=== PATIENT | male | born 1965 | race Caucasian/White ===

== ENCOUNTER 2018-08-21 16:24 | Inpatient (IN) | payer OTHER ==
[~2018-08-21] VITALS: Ht 172.7 cm; Wt 73.0 kg
[~2018-08-21 16:24] MED LIST: AMOX-580 PO; HYDR-4383 PO
[2018-08-21] MEDS ORDERED: acetaminophen 325mg tablet PO ONE (16:50)
[2018-08-21] MEDS ORDERED: normal saline 1000ML IV soln IV ONE (16:50)
[2018-08-21 16:58] LABS: CLARITY,URINE CLEAR (Clear); COLOR,URINE YELLOW (Yellow); GLUCOSE, URINE NEGATIVE (Neg); KETONES,URINE NEGATIVE (Neg); LEUKOCYTE ESTERASE ,URINE NEGATIVE (Neg); NITRITES, URINE NEGATIVE (Neg); OCCULT BLOOD,URINE NEGATIVE (Neg); PROTEIN,URINE NEGATIVE (Neg); UA COLLECTION TYPE VOIDED; UROBILINOGEN,URINE 0.2 E.U/dL (0.2-1.0)
[2018-08-21 17:23] LABS: BASOPHILS % (AUTO) 0.2 % (0-1); EOSINOPHILS % (AUTO) 0 % (0-6); HEMATOCRIT 39.6 % (42.0-52.0); HEMOGLOBIN 13.4 g/dl (14.0-17.9); LYMPHOCYTES # (AUTO) 0.9 X10'3 (1.1-4.8); LYMPHOCYTES % (AUTO) 3.1 % (21-51); MEAN CORPUSCULAR HEMOGLOBIN 28.4 PG (27.0-31.0); MEAN CORPUSCULAR HGB CONC 33.7 % (33.0-36.5); MEAN PLATELET VOLUME 7.1 FL (7.4-10.4); MONOCYTES # (AUTO) 0.4 X10'3 (0-0.9); MONOCYTES % (AUTO) 1.4 % (2-12); NEUTROPHILS # (AUTO) 27.5 X10'3 (1.8-7.7); NEUTROPHILS % (AUTO) 95.3 % (42-75); PLATELET COUNT 540 X10'3 (140-440); RED BLOOD COUNT 4.71 X10'6 (4.70-6.10)
[2018-08-21 17:29] LABS: WHITE BLOOD COUNT 28.8 X10'3 (4.5-11.0)
[2018-08-21] MEDS ORDERED: morphine 4 MG/ML inj SYRINge IV ONE (17:35)
[2018-08-21] MEDS ORDERED: ondansetron/PF 4mg/2ml inj IV ONE (17:35)
[2018-08-21 17:36] LABS: ALANINE AMINOTRANSFERASE 52 U/L (12-78); ALBUMIN 3.1 G/DL (3.4-5.0); ALBUMIN/GLOBULIN RATIO 0.7 (1.1-1.5); ALKALINE PHOSPHATASE 157 IU/L (46-116); ANION GAP 13 (8-16); ASPARTATE AMINO TRANSFERASE 25 U/L (10-37); BLOOD UREA NITROGEN 15 MG/DL (7-18); BUN/CREATININE RATIO 12.8 (5.4-32.0); CALCIUM 8.6 MG/DL (8.5-10.1); CHLORIDE 96 MMOL/L (99-107); CREATININE 1.17 MG/DL (0.60-1.10); GLUCOSE 133 MG/DL (70-104); SODIUM 134 MMOL/L (135-145); TOTAL CARBON DIOXIDE 25.5 MMOL/L (24-32); TOTAL PROTEIN 7.6 G/DL (6.4-8.2); eGFR 66 ML/MIN
[2018-08-21 17:40] LABS: PLATELET ESTIMATE INCREASED; TOTAL CELLS COUNTED 100
[2018-08-21] MEDS ORDERED: piperacillin/tazo 3.375gm/50ml 50 ML IV ONE (17:40)
[2018-08-21] MEDS ORDERED: vancomycin/NS 1 GM ADD-VANTAGE 250 ML IV ONE (17:40)
[2018-08-21] MEDS ORDERED: iohexol 350MG/ML 100ml bottle IV ONE (17:41)
[2018-08-21 17:43] LABS: PARTIAL THROMBOPLASTIN TIME 28 SECONDS (22-32); PROTHROMBIN TIME 10.3 SECONDS (9.0-12.0)
[2018-08-21] MEDS: HYDROmorphone 1 mg/ml syringe IV PRN ×2 (18:09→20:50)
[2018-08-21] MEDS ORDERED: NO HOME MEDS (19:49)
[2018-08-21] MEDS ORDERED: heparin 10,000 units/1 ML INJ IV ONE (20:05)
[2018-08-21] MEDS: heparin 25,000 UNIT/250ml bag 250 ML IV SCH (20:36)
[2018-08-21] MEDS ORDERED: acetaminophen 325mg tablet PO PRN (21:00)
[2018-08-21] MEDS ORDERED: mag hydrox/Alum hydrox/simeth 30ml oral suspension PO PRN (21:00)
[2018-08-21] MEDS ORDERED: morphine 2 MG/ML inj. syringe IV PRN ×2 (21:00)
[2018-08-21] MEDS ORDERED: ondansetron/PF 4mg/2ml inj IV PRN (21:00)
[2018-08-21] MEDS ORDERED: magnesium hydroxide 30ml (MOM) UD suspension PO PRN (21:00)
[2018-08-21] MEDS: normal saline 1000ml 1,000 ML IV SCH (21:18)
[2018-08-21 22:35] VITALS: BP 141/81
[2018-08-21] MEDS ORDERED: naloxone 0.4 mg/ml inj IV PRN (23:45)
[2018-08-21] MEDS ORDERED: CADD PCA waste documentation MC SCH (23:45)
[2018-08-22] MEDS: HYDROmorphone/NS 1 mg/ml CADD 50 ML IV SCH ×13 (00:17→23:00)
[2018-08-22] MEDS: piperacillin/tazo 3.375gm/50ml 50 ML IV SCH ×4 (02:49→20:11)
[2018-08-22] MEDS ORDERED: ketorolac trometh. 30mg/ml inj. IV ONE (03:20)
[2018-08-22 03:22] LABS: BASOPHILS # (AUTO) 0.1 X10'3 (0-0.2); BASOPHILS % (AUTO) 0.6 % (0-1); EOSINOPHILS % (AUTO) 0.1 % (0-6); HEMATOCRIT 34.3 % (42.0-52.0); HEMOGLOBIN 11.4 g/dl (14.0-17.9); LYMPHOCYTES # (AUTO) 1.7 X10'3 (1.1-4.8); LYMPHOCYTES % (AUTO) 7.5 % (21-51); MEAN CORPUSCULAR HEMOGLOBIN 28.1 PG (27.0-31.0); MEAN CORPUSCULAR HGB CONC 33.4 % (33.0-36.5); MEAN CORPUSCULAR VOLUME 84.1 FL (78-98); MEAN PLATELET VOLUME 7.1 FL (7.4-10.4); MONOCYTES # (AUTO) 0.8 X10'3 (0-0.9); MONOCYTES % (AUTO) 3.5 % (2-12); NEUTROPHILS # (AUTO) 20.3 X10'3 (1.8-7.7); NEUTROPHILS % (AUTO) 88.3 % (42-75); PLATELET COUNT 445 X10'3 (140-440); RED BLOOD COUNT 4.08 X10'6 (4.70-6.10)
[2018-08-22 03:43] LABS: ALANINE AMINOTRANSFERASE 38 U/L (12-78); ALBUMIN 2.3 G/DL (3.4-5.0); ALBUMIN/GLOBULIN RATIO 0.6 (1.1-1.5); ALKALINE PHOSPHATASE 120 IU/L (46-116); ANION GAP 9 (8-16); ASPARTATE AMINO TRANSFERASE 12 U/L (10-37); BILIRUBIN,TOTAL 0.8 MG/DL (0.1-1.0); BLOOD UREA NITROGEN 11 MG/DL (7-18); BUN/CREATININE RATIO 10.6 (5.4-32.0); CHLORIDE 102 MMOL/L (99-107); CREATININE 1.04 MG/DL (0.60-1.10); GLUCOSE 116 MG/DL (70-104); POTASSIUM 4.2 MMOL/L (3.5-5.1); SODIUM 137 MMOL/L (135-145); TOTAL CARBON DIOXIDE 26.4 MMOL/L (24-32); TOTAL PROTEIN 6.1 G/DL (6.4-8.2); eGFR 75 ML/MIN
[2018-08-22] MEDS: normal saline 1000ml 1,000 ML IV SCH ×3 (03:49→23:02)
[2018-08-22 07:00] VITALS: BP 109/69
[2018-08-22] MEDS ORDERED: potassium Cl 20 mEq SR tablet PO PRN ×2 (09:50)
[2018-08-22] MEDS ORDERED: magnesium Cl slow-release 64mg tablet PO PRN (09:50)
[2018-08-22] MEDS ORDERED: potassium Cl 40MEQ/NS 500ml 500 ML IV PRN ×2 (09:50)
[2018-08-22] MEDS ORDERED: magnesium 4gm in 100ml NS 100 ML IV PRN (09:50)
[2018-08-22 13:27] VITALS: BP 117/60
[2018-08-22] MEDS: heparin 25,000 UNIT/250ml bag 250 ML IV SCH (13:56)
[2018-08-22] MEDS ORDERED: pantoprazole 40 MG vial IV ONE (16:10)
[2018-08-22 16:55] LABS: PARTIAL THROMBOPLASTIN TIME 46 SECONDS (22-32)
[2018-08-22 18:00] VITALS: BP 139/85
[2018-08-22] MEDS: lactobacillus rhamnosus 10,000 MMU CELLS/CAPSULE PO SCH (20:08)
[2018-08-22] MEDS: ketorolac trometh. 30mg/ml inj. IV PRN (20:10)
[2018-08-22] MEDS: heparin 10,000 units/1 ML INJ IV PRN (22:52)
[2018-08-23] VITALS: BP 111/66
[2018-08-23] MEDS: HYDROmorphone/NS 1 mg/ml CADD 50 ML IV SCH ×12 (01:00→23:00)
[2018-08-23] MEDS: piperacillin/tazo 3.375gm/50ml 50 ML IV SCH ×4 (01:41→19:55)
[2018-08-23 05:12] LABS: BASOPHILS % (AUTO) 0.2 % (0-1); EOSINOPHILS # (AUTO) 0.1 X10'3 (0-0.9); EOSINOPHILS % (AUTO) 0.9 % (0-6); HEMATOCRIT 30.3 % (42.0-52.0); HEMOGLOBIN 10.1 g/dl (14.0-17.9); LYMPHOCYTES # (AUTO) 1.4 X10'3 (1.1-4.8); LYMPHOCYTES % (AUTO) 10.5 % (21-51); MEAN CORPUSCULAR HGB CONC 33.5 % (33.0-36.5); MEAN CORPUSCULAR VOLUME 83.8 FL (78-98); MEAN PLATELET VOLUME 8.1 FL (7.4-10.4); MONOCYTES # (AUTO) 0.8 X10'3 (0-0.9); MONOCYTES % (AUTO) 5.8 % (2-12); NEUTROPHILS # (AUTO) 11.1 X10'3 (1.8-7.7); NEUTROPHILS % (AUTO) 82.6 % (42-75); PLATELET COUNT 371 X10'3 (140-440); RED BLOOD COUNT 3.62 X10'6 (4.70-6.10); RED CELL DISTRIBUTION WIDTH 13.8 % (11.5-14.5); WHITE BLOOD COUNT 13.4 X10'3 (4.5-11.0)
[2018-08-23 05:13] LABS: ALANINE AMINOTRANSFERASE 26 U/L (12-78); ALBUMIN/GLOBULIN RATIO 0.5 (1.1-1.5); ALKALINE PHOSPHATASE 98 IU/L (46-116); ANION GAP 8 (8-16); ASPARTATE AMINO TRANSFERASE 11 U/L (10-37); BILIRUBIN,TOTAL 0.4 MG/DL (0.1-1.0); BLOOD UREA NITROGEN 11 MG/DL (7-18); BUN/CREATININE RATIO 9.4 (5.4-32.0); CALCIUM 7.8 MG/DL (8.5-10.1); CHLORIDE 106 MMOL/L (99-107); CREATININE 1.17 MG/DL (0.60-1.10); GLUCOSE 105 MG/DL (70-104); MAGNESIUM 1.9 MG/DL (1.5-2.4); PHOSPHORUS 2.6 MG/DL (2.3-4.5); POTASSIUM 3.7 MMOL/L (3.5-5.1); SODIUM 141 MMOL/L (135-145); TOTAL CARBON DIOXIDE 26.8 MMOL/L (24-32); TOTAL PROTEIN 5.8 G/DL (6.4-8.2); eGFR 66 ML/MIN
[2018-08-23 07:00] VITALS: BP 112/70
[2018-08-23] MEDS: pantoprazole 40 MG vial IV SCH (08:05)
[2018-08-23] MEDS: ketorolac trometh. 30mg/ml inj. IV PRN ×2 (08:11→19:56)
[2018-08-23] MEDS: lactobacillus rhamnosus 10,000 MMU CELLS/CAPSULE PO SCH ×2 (08:12→19:55)
[2018-08-23] MEDS: heparin 25,000 UNIT/250ml bag 250 ML IV SCH ×2 (09:54→17:29)
[2018-08-23] MEDS: normal saline 1000ml 1,000 ML IV SCH ×2 (09:55→20:28)
[2018-08-23 11:00] VITALS: BP 111/71
[2018-08-23] MEDS: heparin 10,000 units/1 ML INJ IV PRN (17:26)
[2018-08-23] MEDS ORDERED: acetaminophen 325mg tablet PO PRN (17:35)
[2018-08-23 18:00] VITALS: BP 130/77
[2018-08-23] MEDS: valacyclovir 500mg tablet PO SCH (19:55)
[2018-08-24] VITALS: BP 116/66
[2018-08-24] MEDS: heparin 25,000 UNIT/250ml bag 250 ML IV SCH ×3 (00:45→09:00)
[2018-08-24] MEDS: HYDROmorphone/NS 1 mg/ml CADD 50 ML IV SCH ×7 (01:00→13:00)
[2018-08-24] MEDS: piperacillin/tazo 3.375gm/50ml 50 ML IV SCH ×4 (02:14→20:47)
[2018-08-24 05:16] LABS: BASOPHILS # (AUTO) 0.1 X10'3 (0-0.2); BASOPHILS % (AUTO) 1.5 % (0-1); EOSINOPHILS # (AUTO) 0.1 X10'3 (0-0.9); EOSINOPHILS % (AUTO) 1.7 % (0-6); HEMATOCRIT 27.2 % (42.0-52.0); HEMOGLOBIN 8.9 g/dl (14.0-17.9); LYMPHOCYTES # (AUTO) 1.6 X10'3 (1.1-4.8); MEAN CORPUSCULAR HEMOGLOBIN 27.8 PG (27.0-31.0); MEAN CORPUSCULAR HGB CONC 32.7 % (33.0-36.5); MEAN CORPUSCULAR VOLUME 85.1 FL (78-98); MONOCYTES # (AUTO) 0.5 X10'3 (0-0.9); MONOCYTES % (AUTO) 5.4 % (2-12); NEUTROPHILS # (AUTO) 6.5 X10'3 (1.8-7.7); NEUTROPHILS % (AUTO) 73.4 % (42-75); PLATELET COUNT 342 X10'3 (140-440); RED CELL DISTRIBUTION WIDTH 14.2 % (11.5-14.5); WHITE BLOOD COUNT 8.9 X10'3 (4.5-11.0)
[2018-08-24 05:35] LABS: ANION GAP 8 (8-16); BLOOD UREA NITROGEN 9 MG/DL (7-18); BUN/CREATININE RATIO 9.7 (5.4-32.0); CHLORIDE 111 MMOL/L (99-107); CREATININE 0.93 MG/DL (0.60-1.10); GLUCOSE 94 MG/DL (70-104); POTASSIUM 3.2 MMOL/L (3.5-5.1); SODIUM 144 MMOL/L (135-145); TOTAL CARBON DIOXIDE 25.2 MMOL/L (24-32)
[2018-08-24 05:36] LABS: ALANINE AMINOTRANSFERASE 18 U/L (12-78); ALBUMIN 1.7 G/DL (3.4-5.0); ALBUMIN/GLOBULIN RATIO 0.5 (1.1-1.5); ALKALINE PHOSPHATASE 74 IU/L (46-116); ASPARTATE AMINO TRANSFERASE 7 U/L (10-37); BILIRUBIN,TOTAL 0.3 MG/DL (0.1-1.0); CALCIUM 7.2 MG/DL (8.5-10.1); MAGNESIUM 1.6 MG/DL (1.5-2.4); PHOSPHORUS 2.9 MG/DL (2.3-4.5); TOTAL PROTEIN 5.1 G/DL (6.4-8.2); eGFR 86 ML/MIN
[2018-08-24] MEDS: pantoprazole 40 MG vial IV SCH (07:18)
[2018-08-24] MEDS: lactobacillus rhamnosus 10,000 MMU CELLS/CAPSULE PO SCH ×2 (07:19→20:50)
[2018-08-24] MEDS: valacyclovir 500mg tablet PO SCH (07:19)
[2018-08-24 07:20] LABS: BASOPHILS % (AUTO) 0.4 % (0-1); EOSINOPHILS # (AUTO) 0.2 X10'3 (0-0.9); EOSINOPHILS % (AUTO) 1.5 % (0-6); HEMATOCRIT 28.2 % (42.0-52.0); HEMOGLOBIN 9.4 g/dl (14.0-17.9); LYMPHOCYTES # (AUTO) 1.3 X10'3 (1.1-4.8); MEAN CORPUSCULAR HEMOGLOBIN 28.1 PG (27.0-31.0); MEAN CORPUSCULAR HGB CONC 33.3 % (33.0-36.5); MEAN CORPUSCULAR VOLUME 84.3 FL (78-98); MEAN PLATELET VOLUME 7.3 FL (7.4-10.4); MONOCYTES # (AUTO) 0.5 X10'3 (0-0.9); MONOCYTES % (AUTO) 5.1 % (2-12); NEUTROPHILS # (AUTO) 8.1 X10'3 (1.8-7.7); PLATELET COUNT 369 X10'3 (140-440); RED BLOOD COUNT 3.34 X10'6 (4.70-6.10); RED CELL DISTRIBUTION WIDTH 14.1 % (11.5-14.5); WHITE BLOOD COUNT 10.1 X10'3 (4.5-11.0)
[2018-08-24] MEDS: normal saline 1000ml 1,000 ML IV SCH ×2 (07:21→16:50)
[2018-08-24 07:35] VITALS: BP 138/78
[2018-08-24 07:41] LABS: ALANINE AMINOTRANSFERASE 19 U/L (12-78); ALBUMIN/GLOBULIN RATIO 0.5 (1.1-1.5); ALKALINE PHOSPHATASE 93 IU/L (46-116); ANION GAP 6 (8-16); ASPARTATE AMINO TRANSFERASE 10 U/L (10-37); BILIRUBIN,TOTAL 0.3 MG/DL (0.1-1.0); BLOOD UREA NITROGEN 9 MG/DL (7-18); BUN/CREATININE RATIO 8.6 (5.4-32.0); CALCIUM 8.1 MG/DL (8.5-10.1); CHLORIDE 108 MMOL/L (99-107); CREATININE 1.05 MG/DL (0.60-1.10); GLUCOSE 109 MG/DL (70-104); POTASSIUM 3.7 MMOL/L (3.5-5.1); SODIUM 141 MMOL/L (135-145); TOTAL CARBON DIOXIDE 26.9 MMOL/L (24-32); TOTAL PROTEIN 5.8 G/DL (6.4-8.2); eGFR 74 ML/MIN
[2018-08-24] MEDS: ketorolac trometh. 30mg/ml inj. IV PRN ×2 (08:49→20:45)
[2018-08-24] MEDS ORDERED: sincalide inj 0 MCG in normal saline 50ml IV soln 50 ML IV ONE (10:45)
[2018-08-24 11:00] VITALS: BP 119/72
[2018-08-24] MEDS ORDERED: HYDROmorphone 1 mg/ml syringe IV PRN (14:40)
[2018-08-24] MEDS ORDERED: HYDROcodone/acetaminophen 5mg/325mg tablet PO PRN (14:40)
[2018-08-24] MEDS: HYDROcodone/acetaminophen 10/325mg tab PO PRN ×2 (15:07→23:28)
[2018-08-24 18:00] LABS: PROTHROMBIN TIME 10.2 SECONDS (9.0-12.0)
[2018-08-24 20:00] VITALS: BP 124/64
[2018-08-24] MEDS: enoxaparin 100mg/ml syringe SUBCUT SCH (20:42)
[2018-08-24] MEDS ORDERED: warfarin 5mg tablet PO ONE (21:00)
[2018-08-25] VITALS: BP 139/72
[2018-08-25] MEDS: piperacillin/tazo 3.375gm/50ml 50 ML IV SCH ×4 (01:47→20:53)
[2018-08-25] MEDS: normal saline 1000ml 1,000 ML IV SCH ×2 (01:48→15:00)
[2018-08-25 05:07] LABS: BASOPHILS % (AUTO) 0.5 % (0-1); EOSINOPHILS # (AUTO) 0.1 X10'3 (0-0.9); EOSINOPHILS % (AUTO) 1.9 % (0-6); HEMATOCRIT 27.9 % (42.0-52.0); HEMOGLOBIN 9.2 g/dl (14.0-17.9); LYMPHOCYTES # (AUTO) 1.4 X10'3 (1.1-4.8); LYMPHOCYTES % (AUTO) 20.8 % (21-51); MEAN CORPUSCULAR HEMOGLOBIN 27.9 PG (27.0-31.0); MEAN CORPUSCULAR VOLUME 84.6 FL (78-98); MONOCYTES # (AUTO) 0.3 X10'3 (0-0.9); MONOCYTES % (AUTO) 4.7 % (2-12); NEUTROPHILS # (AUTO) 4.9 X10'3 (1.8-7.7); NEUTROPHILS % (AUTO) 72.1 % (42-75); PLATELET COUNT 388 X10'3 (140-440); RED CELL DISTRIBUTION WIDTH 13.9 % (11.5-14.5); WHITE BLOOD COUNT 6.8 X10'3 (4.5-11.0)
[2018-08-25 05:18] LABS: PROTHROMBIN TIME 10.5 SECONDS (9.0-12.0)
[2018-08-25 06:02] LABS: ALANINE AMINOTRANSFERASE 19 U/L (12-78); ALBUMIN 1.9 G/DL (3.4-5.0); ALBUMIN/GLOBULIN RATIO 0.5 (1.1-1.5); ALKALINE PHOSPHATASE 90 IU/L (46-116); ANION GAP 9 (8-16); ASPARTATE AMINO TRANSFERASE 12 U/L (10-37); BILIRUBIN,TOTAL 0.3 MG/DL (0.1-1.0); BLOOD UREA NITROGEN 6 MG/DL (7-18); BUN/CREATININE RATIO 5.9 (5.4-32.0); CALCIUM 7.7 MG/DL (8.5-10.1); CHLORIDE 112 MMOL/L (99-107); CREATININE 1.02 MG/DL (0.60-1.10); GLUCOSE 117 MG/DL (70-104); MAGNESIUM 1.8 MG/DL (1.5-2.4); POTASSIUM 3.4 MMOL/L (3.5-5.1); SODIUM 146 MMOL/L (135-145); TOTAL CARBON DIOXIDE 24.7 MMOL/L (24-32); TOTAL PROTEIN 5.7 G/DL (6.4-8.2); eGFR 77 ML/MIN
[2018-08-25] MEDS: HYDROcodone/acetaminophen 10/325mg tab PO PRN ×3 (07:55→21:11)
[2018-08-25] MEDS: lactobacillus rhamnosus 10,000 MMU CELLS/CAPSULE PO SCH ×2 (07:56→20:53)
[2018-08-25] MEDS: enoxaparin 100mg/ml syringe SUBCUT SCH ×2 (07:57→20:55)
[2018-08-25] MEDS: pantoprazole 40 MG vial IV SCH (07:57)
[2018-08-25 09:07] VITALS: BP 126/67
[2018-08-25] MEDS: ketorolac trometh. 30mg/ml inj. IV PRN (10:50)
[2018-08-25 11:34] VITALS: BP 115/62
[2018-08-25 19:15] VITALS: BP 132/78
[2018-08-25] MEDS ORDERED: warfarin 5mg tablet PO ONE (21:00)
[2018-08-26] VITALS: BP 132/73
[2018-08-26] MEDS: normal saline 1000ml 1,000 ML IV SCH ×2 (01:00→07:57)
[2018-08-26] MEDS: piperacillin/tazo 3.375gm/50ml 50 ML IV SCH ×3 (01:40→15:19)
[2018-08-26] MEDS: ketorolac trometh. 30mg/ml inj. IV PRN (04:17)
[2018-08-26 05:28] LABS: BASOPHILS # (AUTO) 0.1 X10'3 (0-0.2); BASOPHILS % (AUTO) 0.8 % (0-1); EOSINOPHILS # (AUTO) 0.2 X10'3 (0-0.9); EOSINOPHILS % (AUTO) 2.8 % (0-6); HEMATOCRIT 29.4 % (42.0-52.0); HEMOGLOBIN 9.7 g/dl (14.0-17.9); LYMPHOCYTES # (AUTO) 2.1 X10'3 (1.1-4.8); LYMPHOCYTES % (AUTO) 29.7 % (21-51); MEAN CORPUSCULAR HEMOGLOBIN 27.9 PG (27.0-31.0); MEAN CORPUSCULAR VOLUME 84.6 FL (78-98); MEAN PLATELET VOLUME 8.2 FL (7.4-10.4); MONOCYTES # (AUTO) 0.4 X10'3 (0-0.9); MONOCYTES % (AUTO) 5.7 % (2-12); NEUTROPHILS # (AUTO) 4.3 X10'3 (1.8-7.7); PLATELET COUNT 378 X10'3 (140-440); RED BLOOD COUNT 3.47 X10'6 (4.70-6.10); RED CELL DISTRIBUTION WIDTH 14.1 % (11.5-14.5); WHITE BLOOD COUNT 7.1 X10'3 (4.5-11.0)
[2018-08-26 05:40] LABS: INR 1.1 INR; PROTHROMBIN TIME 10.9 SECONDS (9.0-12.0)
[2018-08-26 05:43] LABS: ALANINE AMINOTRANSFERASE 30 U/L (12-78); ALBUMIN 2.1 G/DL (3.4-5.0); ALBUMIN/GLOBULIN RATIO 0.5 (1.1-1.5); ALKALINE PHOSPHATASE 94 IU/L (46-116); ANION GAP 7 (8-16); ASPARTATE AMINO TRANSFERASE 26 U/L (10-37); BILIRUBIN,TOTAL 0.3 MG/DL (0.1-1.0); BLOOD UREA NITROGEN 8 MG/DL (7-18); BUN/CREATININE RATIO 7.3 (5.4-32.0); CALCIUM 8.2 MG/DL (8.5-10.1); CHLORIDE 109 MMOL/L (99-107); CREATININE 1.09 MG/DL (0.60-1.10); GLUCOSE 101 MG/DL (70-104); MAGNESIUM 1.8 MG/DL (1.5-2.4); PHOSPHORUS 3.7 MG/DL (2.3-4.5); POTASSIUM 3.6 MMOL/L (3.5-5.1); SODIUM 144 MMOL/L (135-145); TOTAL PROTEIN 6.1 G/DL (6.4-8.2); eGFR 71 ML/MIN
[2018-08-26 07:21] VITALS: BP 162/84
[2018-08-26] MEDS ORDERED: pantoprazole 40mg Tablet.DR PO SCH (07:30)
[2018-08-26] MEDS: lactobacillus rhamnosus 10,000 MMU CELLS/CAPSULE PO SCH (07:43)
[2018-08-26] MEDS: HYDROcodone/acetaminophen 10/325mg tab PO PRN ×2 (07:44→11:42)
[2018-08-26] MEDS: enoxaparin 100mg/ml syringe SUBCUT SCH (07:45)
[2018-08-26] MEDS ORDERED: enoxaparin 40mg/0.4ml syringe SQ SCH ×2 (08:00→20:00)
[2018-08-26] MEDS ORDERED: enoxaparin 30mg/0.3ml syringe SUBCUT SCH ×2 (08:00→20:00)
[2018-08-26] MEDS ORDERED: LACT1CAP26 PO (12:04)
[2018-08-26] MEDS ORDERED: ENOX30DI4 SUBCUT (12:04)
[2018-08-26] MEDS ORDERED: WARF-55 PO (12:04)
[2018-08-26] MEDS ORDERED: ENOX40DI11 SQ (12:04)
[2018-08-26] MEDS ORDERED: PANT40TA4 PO (12:04)
[2018-08-26 12:09] VITALS: BP 160/86
[2018-08-26] MEDS ORDERED: warfarin 7.5mg tablet PO ONE (21:00)
== END 2018-08-26 16:50 | disposition home health service (06) | DRG 871 ==
LOC: ER 16:25 → ED HOLD 21:00 → CANBEDREQ 21:18 → EDBEDREQTM 21:45 → EDBEDREQ 21:45 → EDBEDREQSVC 21:45 → SUR 3N 22:15
PROVIDERS: ADMIT Internal Medicine; ATTEND Family Medicine
PROC: B32T1ZZ Computerized Tomography (CT Scan) of Left Pulmonary Artery using Low Osmolar Contrast (ICD-10-PCS; principal; 2018-08-21)
PROC: B3201ZZ Computerized Tomography (CT Scan) of Thoracic Aorta using Low Osmolar Contrast (ICD-10-PCS; 2018-08-21)
PROC: B32S1ZZ Computerized Tomography (CT Scan) of Right Pulmonary Artery using Low Osmolar Contrast (ICD-10-PCS; 2018-08-21)
PROC: BW211ZZ Computerized Tomography (CT Scan) of Abdomen and Pelvis using Low Osmolar Contrast (ICD-10-PCS; 2018-08-21)
PROC: CF1C1ZZ Planar Nuclear Medicine Imaging of Hepatobiliary System, All using Technetium 99m (Tc-99m) (ICD-10-PCS; 2018-08-24)
PROC: 02HV33Z Insertion of Infusion Device into Superior Vena Cava, Percutaneous Approach (ICD-10-PCS; 2018-08-26)
PROC: B548ZZA Ultrasonography of Superior Vena Cava, Guidance (ICD-10-PCS; 2018-08-26)
DX: A41.9 Sepsis, unspecified organism (principal); I81 Portal vein thrombosis; I82.432 Acute embolism and thrombosis of left popliteal vein; M25.511 Pain in right shoulder; R65.20 Severe sepsis without septic shock; Z79.01 Long term (current) use of anticoagulants; Z90.49 Acquired absence of other specified parts of digestive tract; Z79.899 Other long term (current) drug therapy
CPT/HCPCS: 36415; 36569; 71045; 71275; 74177; 76937; 78226; 80053; 81003; 83605; 83735; 84100; 84145; 85025; 85610; 85730; 87040; 87070; 93005; A9537; C9113; G0378; J1170; J1644; J1650; J1885; J2270; J2405; J2543; J3370; J7030; Q9967

== ENCOUNTER 2018-11-05 09:32 | Outpatient (CLI) | payer OTHER ==
[~2018-11-05 09:32] MED LIST changes: -AMOX-580 PO; +ENOX30DI4 SUBCUT; +ENOX40DI11 SQ; -HYDR-4383 PO; +LACT1CAP26 PO; +NO HOME MEDS; +PANT40TA4 PO; +WARF-55 PO
== END 2018-11-05 23:59 | disposition home or self-care (01) ==
LOC: VAS 09:32
PROVIDERS: ATTEND Surgery
DX: R10.9 Unspecified abdominal pain (principal); Z98.890 Other specified postprocedural states
CPT/HCPCS: 93975

== ENCOUNTER 2019-11-03 08:37 | Outpatient (CLI) | payer OTHER ==
[~2019-11-03 08:37] MED LIST changes: +iohexol 300mg/ml 100ml inj. ONE
== END 2019-11-03 23:59 | disposition home or self-care (01) ==
LOC: 64 CT 08:37
PROVIDERS: ATTEND Surgery
DX: K43.9 Ventral hernia without obstruction or gangrene (principal); N20.0 Calculus of kidney; R10.9 Unspecified abdominal pain; Z90.49 Acquired absence of other specified parts of digestive tract
CPT/HCPCS: 74176; Q9967

== ENCOUNTER 2025-09-15 18:10 | Emergency (ER) | payer OTHER ==
[~2025-09-15] VITALS: Ht 175.3 cm; Wt 70.5 kg
[~2025-09-15 18:10] MED LIST changes: -PANT40TA4 PO; +PANT40TA54 PO; -iohexol 300mg/ml 100ml inj. ONE
--- NOTE | 2025-09-15 18:35 | Physician Documentation ---
History of Present Illness ~ Chief Complaint: Laceration Stated Complaint: L ARM LAC Time Seen by MD: 18:35 Primary Medical Doctor: Dr. Laguna HPI 70-year-old male presents to the ED with a complaint of laceration on the anterior aspect of his right wrist. He states he cut himself on some glass proximally 20 minutes ago. States that the blood was spurting out until he placed pressure on it. Denies any cold sensations or any numbness or tingling in his hands. Full range of motion motion without any difficulty Day of Onset: Sep 15, 2025 Tetanus Within 5 Years: No (UNK) Medication Reconciliation Allergies: Coded Allergies: No Known Allergies (Unverified , 08/08/18) Scheduled Enoxaparin Sodium (Enoxaparin Sodium), 40 MG SQ BID Enoxaparin Sodium (Enoxaparin Sodium), 0.3 MG SUBCUT BID Lactobacillus Rhamnosus (Culturelle), 10,000 MMU PO Q12H Pantoprazole Sodium (Pantoprazole Sodium), 40 MG PO BKF Warfarin Sodium (Warfarin Sodium), 1 TAB PO DAILY Miscellaneous Medications Home Med List (No Home Medications), (Reported) Past Medical History Past Medical History: Pancreatitis Past Surgical History: noncontributory Alcohol Use: Occasionally Drug Use: none Lives with: Spouse Lives In: Home Physical Exam Vital Signs: Temperature: 97.9, Heart Rate: 128, Respiratory Rate: 16, BP: 176/104, Pulse Oximetry: 97, Weight: 70.450 Oxygen Flow Rate: 0 Physical Exam General: Alert, no apparent distress. HEENT: PERRL, EOMI, no injection, moist mucous membranes. Extremities: Normal range of motion, no deformity. 4 Cm laceration on the anterior of the right wrist Neurologic: Oriented x4. Psychiatric: Normal mood and affect. Skin: Normal color, warm and dry. No edema, no ecchymosis. Procedures I&D Procedure : Anesthesia: Lidocaine w/ Epi Laceration/Wound Repair Laceration : Anesthesia: Lidocaine w/ Epi Number of Superficial Sutures: 1 Deep Layer Suture Size/Type: 4-0 Procedure Note running stitch approximated wound without difficulty Progress Results/Orders Results/Orders Orders - ARASH JEAN NP Laceration/I&D Tray Set Up (09/15/25 ) Completed Orders - MIRANDA,ARASH H [employer]NAGER Lidocaine 1% W/Epi 1:100,000 (Xylocaine (09/15/25 18:35) Tetanus/Pertuss/Diph Acell/Pf (Boostrix (09/15/25 19:35) Medications Received in ER Medications (Trade) Dose Ordered Sig/Gabe Route PRN Reason Start Time Stop Time Status Last Admin Dose Admin (Xylocaine 1%-EPI 1:100,000) 30 ml ONCE ONCE SQ 09/15/25 18:35 09/15/25 18:39 DC 09/15/25 19:09 30 ML (Boostrix vaccine syringe) 0.5 ml ONCE ONCE IMVAC 09/15/25 19:35 09/15/25 19:36 DC 09/15/25 19:40 0.5 ML Vital Signs 09/15/25 09/15/25 18:25 19:45 Temp 97.9 97.9 Pulse 128 98 Resp 16 16 B/P (MAP) 176/104 176/104 Pulse Ox 97 97 O2 Flow Rate 0 Medical Decision Making Additional information obtaine: old records Findings Perform laceration repair without difficulty patient tolerated well going to discharge him [facility] Differential Dx:Considerations: Include: Abrasion, Avulsion, Contusion, Laceration, Fracture, Hematoma, Neurovascular injury, Retained foreign body, Other Departure Disposition: 01 HOME / SELF CARE / HOMELESS Impression: Primary Impression: Laceration Condition: Improved Discharge Instructions: Laceration Care, Adult, [facility] Additional Instructions: have suture removed in 7- 10 days. keep the area clean and dry. Referrals: NO PRIMARY CARE PROVIDER (PCP) Education Educated: Patient Educated regarding: diagnosis Signature Scribe Signature: f Attestation: Scribed for Arash Jean Hydrodynamics Teacher by Arash Lewis NP . 09/15/25 23:13 ARASH JEAN NP Sep 15, 2025 18:35
[2025-09-15] MEDS: LIDOcaine 1% W/epiNEPHrine 1:100,000 20ml vial SQ ONE (19:09)
[2025-09-15] MEDS: TETanus/Pertussis (Acell)/Diphther VAC/PF (Tdap-Adult) 0.5ml syringe IMVAC ONE (19:40)
[2025-09-15 19:45] VITALS: BP 176/104; PULSE 98; RESP 16; TEMP 97.9; O2SAT 97
== END 2025-09-15 19:49 | disposition home or self-care (01) ==
LOC: ER 18:11
DX: S41.112A Laceration without foreign body of left upper arm, initial encounter (principal); Z87.19 Personal history of other diseases of the digestive system; Z79.899 Other long term (current) drug therapy; Z79.01 Long term (current) use of anticoagulants; Z72.89 Other problems related to lifestyle; W25.XXXA Contact with sharp glass, initial encounter; Y93.89 Activity, other specified; Y92.89 Other specified places as the place of occurrence of the external cause; Y99.8 Other external cause status
CPT/HCPCS: 12002; 90471; 90715; 99283; A6222; J3490; J7030; A6446; A6449